=== PATIENT | female | born 1990 | race African-American/Black ===

== ENCOUNTER 2017-01-06 13:43 | Emergency (ER) | payer MEDICAID ==
[2017-01-06 14:54] LABS: HCG SERUM NEGATIVE (NEGATIVE)
== END 2017-01-06 17:30 | disposition home or self-care (01) ==
LOC: D.ER 13:43
PROVIDERS: Family Medicine
DX: S39.012A Strain of muscle, fascia and tendon of lower back, initial encounter (principal); W17.89XA Other fall from one level to another, initial encounter; Y93.89 Activity, other specified; Y92.89 Other specified places as the place of occurrence of the external cause; S90.32XA Contusion of left foot, initial encounter; F17.200 Nicotine dependence, unspecified, uncomplicated